=== PATIENT | male | born 1950 | race Caucasian/White ===

== ENCOUNTER 2017-06-21 21:07 | Inpatient (IN) | payer MEDICARE ==
[~2017-06-21] VITALS: Ht 177.8 cm; Wt 81.6 kg
[2017-06-21] MEDS ORDERED: ASPI-612 PO (21:49)
[2017-06-21] MEDS ORDERED: OXYC15TA2 PO (21:49)
[2017-06-21] MEDS ORDERED: CLON0.1T PO (21:49)
[2017-06-21] MEDS ORDERED: HYDR-3326 PO (21:49)
[2017-06-21] MEDS ORDERED: AMLO5TAB2 PO (21:49)
[2017-06-21] MEDS ORDERED: TRIA1CAP6 PO (21:49)
[2017-06-21] MEDS ORDERED: DORZ10DR13 EACHEYE (21:49)
[2017-06-21] MEDS ORDERED: LEVO150T8 PO (21:49)
[2017-06-21 22:05] VITALS: BP 146/85
[2017-06-21] MEDS ORDERED: HYDROCODONE/APAP 5-325MG TABLET PO SCH (22:15)
[2017-06-21] MEDS ORDERED: OXYCODONE HCL 5 MG TABLET PO PRN (22:15)
[2017-06-21] MEDS ORDERED: CLONIDINE HCL 0.1 MG TABLET PO PRN (22:15)
[2017-06-21] MEDS: ZOLPIDEM 5 MG TABLET PO PRN (22:53)
[2017-06-21] MEDS: HYDROCODONE/APAP 5-325MG TABLET PO PRN (23:50)
--- NOTE | 2017-06-22 | NUR ---
received a 66 year old male from [facility] with admitting diagnosis of osteoarthritis. Had surgey on 06/20 S/P right knee arthroplasty. AAOx4 JACOBS's Right knee dressing clean dry and intact, with gilbert in placed. Right knee a little bit swollen. On pain management. Medicated with 1 tab of Cuervo on a scale of 6/10 scale. VSS. Afebrile. BP 146/85 HR 87 Resp 16 pulse ox 97% RA. Voiding freely. Last BM 06/19/17 Dr David aware of patient's admission. Has hx of glaucoma, HTN, Hypothyroidism, laminectomy (04/30) Skin intact./ No acute distress noted.Will monitor patient. Kept comfortable.
[2017-06-22] MEDS ORDERED: Z GUARD REMEDY PASTE 57 GM TUBE TOP PRN (01:30)
--- NOTE | 2017-06-22 05:05 | NUR ---
slept at long intervals. no distress noted needs attended. voiding well. right knee dressing intact. Junction i tab given for pain in the knee. i``````````````````````````````````````````````````````````````````````````````````````````` ```````````````````````````````````````````````````````````````````````````````````````````` ````````````````````````````````
[2017-06-22] MEDS ORDERED: LEVOTHYROXINE SODIUM 150 MCG TABLET PO SCH ×2 (07:00→09:00)
[2017-06-22 07:16] VITALS: BP 127/80
--- NOTE | 2017-06-22 07:26 | NUR ---
pt received in bed sleeping denies any pain no sob noted,call light with in reach bed in low position
[2017-06-22] MEDS: ASPIRIN 325 MG TABLET PO SCH ×2 (08:16→16:01)
[2017-06-22] MEDS: AMLODIPINE 5 MG TABLET PO SCH (08:16)
[2017-06-22] MEDS: DORZOLAMIDE 2% OPHT DROP 10 ML BOTTLE EACHEYE SCH ×2 (08:22→20:46)
[2017-06-22] MEDS ORDERED: DORZOLAMIDE/TIMOLOL OPHT DROP 10 ML BOTTLE EACHEYE SCH ×2 (09:00)
[2017-06-22] MEDS: TIMOLOL MALEATE 0.5% OPHT DROP 5 ML BOTTLE EACHEYE SCH ×2 (09:31→20:46)
[2017-06-22] MEDS: OXYCODONE HCL 5 MG TABLET PO PRN (09:39)
[2017-06-22] MEDS: MAGNESIUM HYDROXIDE 30 ML LIQUID UDC PO PRN (11:09)
--- NOTE | 2017-06-22 20:00 | NUR ---
PATIENT AWAKE IN BED. A/O X4. DRESSING NOTED TO RIGHT KNEE, C/D/I. PATIENT DENIES ANY PAIN OR DISCOMFORT AT THIS TIME. NO RESP. DISTRESS NOTED. CALL LIGHT IN REACH. ALL NEEDS ATTENDED. WILL CONTINUE TO MONITOR AND ASSESS.
[2017-06-22 20:57] VITALS: BP 130/80
[2017-06-22] MEDS: ZOLPIDEM 5 MG TABLET PO PRN (21:26)
[2017-06-23] MEDS: LEVOTHYROXINE SODIUM 150 MCG TABLET PO SCH (06:21)
--- NOTE | 2017-06-23 06:40 | NUR ---
PATIENT AWAKE IN BED. SLEPT WELL. DENIES PAIN. CALL LIGHT IN REACH. ALL NEEDS ATTENDED. WILL CONTINUE TO MONITOR.
--- NOTE | 2017-06-23 07:30 | NUR ---
pt received in bed sleeping denies any pain no sob noted,call light with in reach bed in low position
[2017-06-23 07:40] LABS: BASOPHILS % (AUTO) 0.3 % (0.0-2.0); EOSINOPHILS # (AUTO) 0.1 K/uL (0.0-0.7); EOSINOPHILS % (AUTO) 0.9 % (0.0-7.0); HEMATOCRIT 34.8 % (36.7-47.1); HEMOGLOBIN 12.2 g/dL (12.5-16.3); LYMPHOCYTES # (AUTO) 1.4 K/uL (20.0-40.0); LYMPHOCYTES % (AUTO) 13.7 % (20.5-51.5); MEAN CORPUSCULAR HEMOGLOBIN 31.8 uug (23.8-33.4); MEAN CORPUSCULAR HGB CONC 35 g/dL (32.5-36.3); MEAN CORPUSCULAR VOLUME 90.7 fL (73.0-96.2); MONOCYTES # (AUTO) 1.5 K/uL (2.0-10.0); MONOCYTES % (AUTO) 15.2 % (0.0-11.0); NEUTROPHILS # (AUTO) 7.1 K/uL (1.8-8.9); NEUTROPHILS % (AUTO) 69.9 % (38.5-71.5); PLATELET COUNT (AUTO) 207 K/uL (152-348); RED BLOOD CELL COUNT(AUTO) 3.84 MIL/uL (4.06-5.63); WHITE BLOOD COUNT (AUTO) 10.1 K/uL (3.6-10.2)
[2017-06-23 08:00] VITALS: BP 114/76
[2017-06-23 08:01] LABS: BILIRUBIN,TOTAL 1.6 mg/dL (0.2-1.0); MAGNESIUM 2.1 mg/dL (1.8-2.4); PHOSPHOROUS 2.6 mg/dL (2.5-4.9); POTASSIUM 3.7 mmol/L (3.5-5.1); TOTAL PROTEIN, SERUM 6.7 g/dL (6.4-8.2)
[2017-06-23] MEDS: DORZOLAMIDE 2% OPHT DROP 10 ML BOTTLE EACHEYE SCH ×2 (08:12→20:47)
[2017-06-23] MEDS: TIMOLOL MALEATE 0.5% OPHT DROP 5 ML BOTTLE EACHEYE SCH ×2 (08:12→20:46)
[2017-06-23] MEDS: ASPIRIN 325 MG TABLET PO SCH ×2 (08:12→16:17)
[2017-06-23] MEDS: AMLODIPINE 5 MG TABLET PO SCH (08:12)
[2017-06-23] MEDS: OXYCODONE HCL 5 MG TABLET PO PRN ×3 (08:20→20:50)
[2017-06-23] MEDS: MAGNESIUM HYDROXIDE 30 ML LIQUID UDC PO PRN (09:29)
[2017-06-23] MEDS: diphenhydrAMINE 25 MG CAP PO PRN (09:57)
[2017-06-23] MEDS: HYDROCODONE/APAP 5-325MG TABLET PO PRN (12:52)
--- NOTE | 2017-06-23 13:00 | NUR ---
DRESSING CHANGE PER MD ORDERS.
--- NOTE | 2017-06-23 20:01 | NUR ---
recieved pt on bed alert and oriented x3 with no apparent distress noted. Denies pain at this time. No SOB noted. Vital signs stable. kept clean, dry and comfortable. Encourage to verbalize needs and concerns. Call light within reach. All needs attended.
[2017-06-23 21:31] LABS: BAND % (MANUAL) 3 % (0-10); EOSINOPHILS % (MANUAL) 1 % (0-8); LYMPHOCYTES % (MANUAL) 15 % (20-40); MONOCYTES % (MANUAL) 14 % (2-10); NEUTROPHILS % (MANUAL) 67 % (42-75)
[2017-06-23 21:45] VITALS: BP 119/77
[2017-06-23] MEDS: ZOLPIDEM 5 MG TABLET PO PRN (21:50)
[2017-06-24] MEDS: diphenhydrAMINE 25 MG CAP PO PRN ×2 (00:30→08:14)
--- NOTE | 2017-06-24 06:17 | NUR ---
Pt slept well throughout the shift. No acute distress noted. Complained of right knee pain, medicated with oxycodone PRN. verbalization of relief noted. Breathing even and unlabored with normal respirations. Kept clean, dry and comfortable. Call light within reach. Safety and fall precautions observed and maintained. All needs attended.
[2017-06-24] MEDS: LEVOTHYROXINE SODIUM 150 MCG TABLET PO SCH (06:30)
--- NOTE | 2017-06-24 07:30 | NUR ---
PATIENT AWAKE IN BED. A/O X4. PATIENT DENIES ANY PAIN OR DISCOMFORT AT THIS TIME. NO RESP. DISTRESS NOTED. CALL LIGHT IN REACH. ALL NEEDS ATTENDED. WILL CONTINUE TO MONITOR AND ASSESS.
[2017-06-24] MEDS: ASPIRIN 325 MG TABLET PO SCH ×2 (08:11→16:16)
[2017-06-24] MEDS: TIMOLOL MALEATE 0.5% OPHT DROP 5 ML BOTTLE EACHEYE SCH ×2 (08:11→20:33)
[2017-06-24] MEDS: AMLODIPINE 5 MG TABLET PO SCH (08:11)
[2017-06-24] MEDS: OXYCODONE HCL 5 MG TABLET PO PRN (08:15)
[2017-06-24] MEDS: MAGNESIUM HYDROXIDE 30 ML LIQUID UDC PO PRN (08:15)
[2017-06-24] MEDS: DORZOLAMIDE 2% OPHT DROP 10 ML BOTTLE EACHEYE SCH ×2 (08:18→20:35)
[2017-06-24 08:51] VITALS: BP 130/81
--- NOTE | 2017-06-24 14:49 | NUR ---
I agree Addendum: 06/24/17 at 1450 by FLOR LARA OT Amended: Links added.
--- NOTE | 2017-06-24 17:00 | NUR ---
INTERDISCIPLINARY TEAM CONFERENCE
--- NOTE | 2017-06-24 20:00 | NUR ---
Pt alert, awake and oriented x3 with no signs/symptoms of distress noted. No complaints of pain or discomfort at this time. Breathing even and unlabored with normal respirations. Kept clean, dry and comfortable. Call light within reach. All needs attended
[2017-06-24] MEDS: ZOLPIDEM 5 MG TABLET PO PRN (20:33)
[2017-06-24 20:40] VITALS: BP 123/70
[2017-06-25] MEDS: LEVOTHYROXINE SODIUM 150 MCG TABLET PO SCH (06:17)
[2017-06-25] MEDS: AMLODIPINE 5 MG TABLET PO SCH (08:06)
[2017-06-25] MEDS: TIMOLOL MALEATE 0.5% OPHT DROP 5 ML BOTTLE EACHEYE SCH ×2 (08:06→20:37)
[2017-06-25] MEDS: DORZOLAMIDE 2% OPHT DROP 10 ML BOTTLE EACHEYE SCH ×2 (08:06→20:37)
[2017-06-25] MEDS: ASPIRIN 325 MG TABLET PO SCH ×2 (08:06→16:10)
[2017-06-25 09:02] VITALS: BP 133/82
--- NOTE | 2017-06-25 20:00 | NUR ---
Pt alert, awake and oriented x3. No acute distress noted. Denies pain or discomfort at this time. Breathing even and unlabored with normal respirations. Ambulates to the bathroom with a walker and with standby assistance. Safety and fall precautions observed and maintained. Call light within reach. All needs attended
[2017-06-25 20:58] VITALS: BP 119/74
[2017-06-25] MEDS: ZOLPIDEM 5 MG TABLET PO PRN (21:40)
[2017-06-26] MEDS: LEVOTHYROXINE SODIUM 150 MCG TABLET PO SCH (06:05)
[2017-06-26] MEDS: ASPIRIN 325 MG TABLET PO SCH ×2 (08:22→16:04)
[2017-06-26] MEDS: AMLODIPINE 5 MG TABLET PO SCH (08:22)
[2017-06-26] MEDS: TIMOLOL MALEATE 0.5% OPHT DROP 5 ML BOTTLE EACHEYE SCH ×2 (08:22→20:21)
[2017-06-26] MEDS: DORZOLAMIDE 2% OPHT DROP 10 ML BOTTLE EACHEYE SCH ×2 (08:23→20:21)
[2017-06-26 09:05] VITALS: BP 126/89
[2017-06-26 20:00] VITALS: BP 126/78
[2017-06-26] MEDS: ZOLPIDEM 5 MG TABLET PO PRN (21:26)
[2017-06-27] MEDS: LEVOTHYROXINE SODIUM 150 MCG TABLET PO SCH (07:28)
[2017-06-27] MEDS: ASPIRIN 325 MG TABLET PO SCH ×2 (08:51→18:03)
[2017-06-27] MEDS: TIMOLOL MALEATE 0.5% OPHT DROP 5 ML BOTTLE EACHEYE SCH ×2 (08:52→21:42)
[2017-06-27] MEDS: AMLODIPINE 5 MG TABLET PO SCH (08:52)
[2017-06-27] MEDS: DORZOLAMIDE 2% OPHT DROP 10 ML BOTTLE EACHEYE SCH ×2 (08:53→21:00)
--- NOTE | 2017-06-27 09:00 | NUR ---
Pt in bed awake, alert, oriented x4 S/P R knee replacement, incision site c/i, gilbert in place, pt will have shower later and the will change dressing to site.
[2017-06-27 10:50] VITALS: BP 126/77
--- NOTE | 2017-06-27 12:56 | NUR ---
Pt is back to bed have PT and OT today, able to ambulate with walker, took all meds, denies any pain at this time.
--- NOTE | 2017-06-27 17:45 | NUR ---
After physical therapy pt have a shower, bandages to R knee were change, no c/o pain or distress, call light in reach.
--- NOTE | 2017-06-27 19:35 | NUR ---
Received patient in bed, awake, alert and verbally responsive. V/S taken and recorded. No acute signs of any respi. distress, breathing even and nonlabored. Pain level of 7/10, will medicate later. Ice compress provided to surgical site. Pertinent assessment done. Safety measures provided. Call light in reach. Will monitor the patient.
[2017-06-27 21:07] VITALS: BP 120/78
[2017-06-27] MEDS: ZOLPIDEM 5 MG TABLET PO PRN (21:42)
[2017-06-27] MEDS: HYDROCODONE/APAP 5-325MG TABLET PO PRN (21:53)
[2017-06-28] MEDS: LEVOTHYROXINE SODIUM 150 MCG TABLET PO SCH (06:09)
[2017-06-28 08:00] VITALS: BP 139/79
[2017-06-28] MEDS: DORZOLAMIDE 2% OPHT DROP 10 ML BOTTLE EACHEYE SCH ×2 (09:00→21:00)
[2017-06-28] MEDS: ASPIRIN 325 MG TABLET PO SCH ×2 (09:23→16:02)
[2017-06-28] MEDS: AMLODIPINE 5 MG TABLET PO SCH (09:24)
[2017-06-28] MEDS: SENNOSIDES/DOCUSATE SODIUM TABLET PO SCH (09:24)
[2017-06-28] MEDS: TIMOLOL MALEATE 0.5% OPHT DROP 5 ML BOTTLE EACHEYE SCH ×2 (09:25→21:07)
[2017-06-28 13:03] VITALS: BP 139/54
--- NOTE | 2017-06-28 19:30 | NUR ---
Patient in bed, awake, alert, verbally responsive and was watching TV. V/S taken and recorded. No acute signs of any respi. distress, breathing even and nonlabored. Ice compress provided to surgical site. Pertinent assessment done. Safety measures provided. Call light in reach. Will monitor the patient.
[2017-06-28 20:40] VITALS: BP 135/73
[2017-06-28] MEDS: ZOLPIDEM 5 MG TABLET PO PRN (21:18)
[2017-06-29] MEDS: HYDROCODONE/APAP 5-325MG TABLET PO PRN ×2 (01:40→21:05)
[2017-06-29] MEDS: LEVOTHYROXINE SODIUM 150 MCG TABLET PO SCH (07:02)
[2017-06-29 07:30] VITALS: BP 126/83
--- NOTE | 2017-06-29 08:37 | NUR ---
I agree Addendum: 06/29/17 at 0837 by ALEAH SHEEHAN OT Amended: Links added.
--- NOTE | 2017-06-29 08:37 | NUR ---
I agree Addendum: 06/29/17 at 0838 by ALEAH SHEEHAN OT Amended: Links added.
[2017-06-29] MEDS: ASPIRIN 325 MG TABLET PO SCH ×2 (08:43→17:26)
[2017-06-29] MEDS: AMLODIPINE 5 MG TABLET PO SCH (08:43)
[2017-06-29] MEDS: SENNOSIDES/DOCUSATE SODIUM TABLET PO SCH (08:43)
[2017-06-29] MEDS: DORZOLAMIDE 2% OPHT DROP 10 ML BOTTLE EACHEYE SCH ×2 (09:00→21:00)
[2017-06-29] MEDS: TIMOLOL MALEATE 0.5% OPHT DROP 5 ML BOTTLE EACHEYE SCH ×2 (10:35→21:02)
--- NOTE | 2017-06-29 13:55 | NUR ---
Reported to Dr. Power pt still experiencing orthostatic hypotension during PT treatments. [employer] S[employer]IOR [employer]OCIATE sat pt up at edge of bed and noted with BP ranging from 79/37-88/41 when sitting up during treatment. Pt denied dizziness during treatment, only complained of feeling fatigued. Pt placed back to bed after treatment and BP improved to 116/54. Per MD, he will come and see pt and review all his medications and make adjustments. No new orders at this time. Addendum: 06/29/17 at 1848 by THEODORE LINARES RN Wrong entry. Wrong patient.
--- NOTE | 2017-06-29 18:34 | NUR ---
Pt remained stable during shift. Pt here for status post right total right knee replacement. Pt using CPM in bed, toro up to 90 degrees. Surgical incision treatment rendered as ordered. Incision site with 41 gilbert noted, no s/s of infection. No discharge, no swelling, and no redness. Denies pain to site. Noted pt in gym participating with PT, using FWW practicing how to step over objects. Also noted pt with OT participating with plan of care. Pt in bed at this time, watching TV. No acute distress noted. All needs met. Will continue to monitor for change.
[2017-06-29 19:30] VITALS: BP 133/69
--- NOTE | 2017-06-29 19:40 | NUR ---
Patient walked from bed to restroom without any assistive device. Able to tolerate it, assist standby only. V/S taken and recorded. No acute signs of any respiratory distress, breathing even and nonlabored. Pain level of 6/10, will manage pain with NORCO. Pertinent assessment done. Safety measures provided. Call light in reach. Will monitor the patient.
[2017-06-29] MEDS: ZOLPIDEM 5 MG TABLET PO PRN (21:03)
[2017-06-30] MEDS: LEVOTHYROXINE SODIUM 150 MCG TABLET PO SCH (06:35)
[2017-06-30 08:00] VITALS: BP 141/80
[2017-06-30] MEDS: DORZOLAMIDE 2% OPHT DROP 10 ML BOTTLE EACHEYE SCH (09:00)
--- NOTE | 2017-06-30 09:35 | NUR ---
SBAR report received, board updated. Pt assessed, no acute distress or SOB noted. Pt denies pain at this time, surgical incision site inspected, wound care provided, and dressing reinforced. No s/s of infection present. Breathing is even and unlabored. Pt assisted to bathroom and able to make needs known. Plan of care for today discussed, including anticipated discharge and travel arrangements by . Bed in locked and lowest position with side rails up x2. All needs attended to. Call light and personal items within reach. Will continue to monitor.
[2017-06-30] MEDS: TIMOLOL MALEATE 0.5% OPHT DROP 5 ML BOTTLE EACHEYE SCH (09:50)
[2017-06-30] MEDS: SENNOSIDES/DOCUSATE SODIUM TABLET PO SCH (09:50)
[2017-06-30] MEDS: ASPIRIN 325 MG TABLET PO SCH (09:50)
[2017-06-30 09:51] VITALS: BP 141/80
[2017-06-30] MEDS: AMLODIPINE 5 MG TABLET PO SCH (09:51)
--- NOTE | 2017-06-30 11:00 | NUR ---
Discharge orders received. VS WNL. Pt education material, Rx, and medical paperwork reviewed with Pt, signed, and copied. Originals given to Pt and copies placed in chart. Individualized plan to attend follow-up appointment with operating surgeon on 07/05/17, along with DME cane to arrive at home tomorrow discussed with Pt and at bedside. Rx discussed with Pt and . All discharge concerns addressed. All comfort and safety needs met. Personal belongings accounted for as well, ID band removed. Pt assisted into wheelchair, accompanied with personal walker out of hospital, and safely transferred into private care with driving. Will remove Pt from system shortly.
== END 2017-06-30 11:00 | disposition home health service (06) | DRG 561 ==
PROVIDERS: ADMIT Physical Medicine & Rehabilitation Pain Medicine; ATTEND Physical Medicine & Rehabilitation Pain Medicine
DX: Z47.1 Aftercare following joint replacement surgery (principal); D63.8 Anemia in other chronic diseases classified elsewhere; E03.9 Hypothyroidism, unspecified; Z96.651 Presence of right artificial knee joint; E78.5 Hyperlipidemia, unspecified; H40.9 Unspecified glaucoma; I10 Essential (primary) hypertension; K59.00 Constipation, unspecified; M81.0 Age-related osteoporosis without current pathological fracture; Z91.013 Allergy to seafood
CPT/HCPCS: 36415; 83735; 84100; 85025; 92526; 92610; 97110; 97112; 97116; 97530; 97535; Q0163